=== PATIENT | male | born 1985 | race Caucasian/White ===

== ENCOUNTER 2018-06-02 08:50 | Outpatient (CLI) | payer MEDICARE, MEDICAID, SELFPAY ==
[2018-06-02 10:57] LABS: HCT 44.4 % (40.0-50.0); HGB 15.3 g/dL (13.5-17.5); Mean Corp. HGB Concentration 34.5 g/dL (32.0-36.0); Mean Corpuscular Hemoglobin 30.9 pg (27.0-33.0); Mean Corpuscular Volume 89.7 fL (80-95); Mean Platelet Volume 9.8 fL (8.0-11.0); Platelet Count 244 x1000/uL (130-400); RBC 4.95 m/cumm (4.50-6.00); RBC Distribution Width 12.1 % (11.8-14.1)
[2018-06-02 11:15] LABS: ALT 22 U/L (12-78); AST 14 U/L (15-37); Albumin 3.9 g/dL (3.4-5.0); Alkaline Phosphatase 54 U/L (46-116); Anion Gap 8.1 mmol/L (3-11); BUN 14 mg/dL (7-18); Bilirubin, Total 0.7 mg/dL (0.2-1.0); CO2 28.9 mmol/L (21.0-32.0); CREATININE 0.86 mg/dL (0.70-1.30); Calcium 8.8 mg/dL (8.5-10.1); Chloride 104 mmol/L (98-107); Cholesterol 166 mg/dL (50-200); Glucose 91 mg/dL (70-100); HDL Cholesterol 43 mg/dL (40-60); LDL CHOLESTEROL 106 mg/dL (<100); Magnesium 1.8 mg/dL (1.8-2.4); Sodium 141 mmol/L (136-145); TSH (W/Ref FT4) 2.04 uIU/mL (0.358-3.74); Total Protein 6.7 g/dL (6.4-8.2); Triglyceride 114 mg/dL (30-150)
== END 2018-06-02 09:10 ==
PROVIDERS: PCP Student in an Organized Health Care Education/Training Program; Visit Provider Student in an Organized Health Care Education/Training Program
DX: R53.83 Other fatigue (principal); F34.1 Dysthymic disorder; R51 Headache; K27.0 Acute peptic ulcer, site unspecified, with hemorrhage; N14.2 Nephropathy induced by unspecified drug, medicament or biological substance; Z13.6 Encounter for screening for cardiovascular disorders; M47.13 Other spondylosis with myelopathy, cervicothoracic region; F41.9 Anxiety disorder, unspecified
CPT/HCPCS: 36415; 80053; 80061; 83721; 85027; 83735; 84443

== ENCOUNTER 2019-04-15 12:29 | Outpatient (CLI) | payer MEDICARE, MEDICAID, SELFPAY ==
[2019-04-15 14:29] LABS: Anion Gap 10.3 mmol/L (3-11); BUN 13 mg/dL (7-18); CO2 28.7 mmol/L (21.0-32.0); CREATININE 0.78 mg/dL (0.70-1.30); Calcium 9.3 mg/dL (8.5-10.1); Calculated LDL 69 mg/dL; Chloride 103 mmol/L (98-107); Cholesterol 147 mg/dL (50-200); Glucose 84 mg/dL (70-100); HDL Cholesterol 45 mg/dL (40-60); Potassium 3.9 mmol/L (3.5-5.1); Sodium 142 mmol/L (136-145); Triglyceride 167 mg/dL (30-150)
[2019-04-18 07:16] LABS: Vitamin D 25 Total 40.5 ng/ml (30-100)
== END 2019-04-15 12:49 ==
PROVIDERS: PCP Student in an Organized Health Care Education/Training Program; Visit Provider Student in an Organized Health Care Education/Training Program
DX: E16.2 Hypoglycemia, unspecified (principal); R03.0 Elevated blood-pressure reading, without diagnosis of hypertension; E55.9 Vitamin D deficiency, unspecified; E78.5 Hyperlipidemia, unspecified
CPT/HCPCS: 36415; 80048; 80061; 82306

== ENCOUNTER → 2020-01-26 10:23 | Outpatient (BNVA) | payer MEDICARE, MEDICAID, SELFPAY | PROVIDERS: PCP Student in an Organized Health Care Education/Training Program; Referring Provider Student in an Organized Health Care Education/Training Program; Visit Provider Nurse Practitioner Adult Health | DX: G43.111 Migraine with aura, intractable, with status migrainosus (principal) | CPT/HCPCS: 99204 ==

== ENCOUNTER 2020-01-31 03:29 | Outpatient (CLI) | payer MEDICARE, MEDICAID, SELFPAY ==
[2020-01-31 13:06] LABS: ALT 26 U/L (16-63); AST 15 U/L (15-37); Albumin 4.1 g/dL (3.4-5.0); Alkaline Phosphatase 44 U/L (46-116); Anion Gap 4.7 mmol/L (3-11); BUN 10 mg/dL (7-18); Bilirubin, Total 0.9 mg/dL (0.2-1.0); CO2 29.3 mmol/L (21.0-32.0); CREATININE 0.75 mg/dL (0.70-1.30); Calcium 9.1 mg/dL (8.5-10.1); Chloride 108 mmol/L (98-107); Glucose 91 mg/dL (74-106); Lipase 144 U/L (73-393); Magnesium 2.1 mg/dL (1.8-2.4); Potassium 4.3 mmol/L (3.5-5.1); Sodium 142 mmol/L (136-145); Total Protein 6.8 g/dL (6.4-8.2)
[2020-01-31 19:31] LABS: Amylase 81 U/L (25-115)
== END 2020-01-31 03:49 ==
PROVIDERS: PCP Student in an Organized Health Care Education/Training Program; Visit Provider Student in an Organized Health Care Education/Training Program
DX: R10.9 Unspecified abdominal pain (principal); R11.2 Nausea with vomiting, unspecified; E86.0 Dehydration
CPT/HCPCS: 36415; 80053; 83690; 82150; 83735

== ENCOUNTER → 2020-05-29 08:22 | Outpatient (BNVA) | payer MEDICARE, MEDICAID, SELFPAY | PROVIDERS: PCP Student in an Organized Health Care Education/Training Program; Referring Provider Student in an Organized Health Care Education/Training Program; Visit Provider Nurse Practitioner Adult Health | DX: G43.111 Migraine with aura, intractable, with status migrainosus (principal); Q79.60 Ehlers-Danlos syndrome, unspecified | CPT/HCPCS: 99212; 99442 ==

== ENCOUNTER 2020-07-30 01:42 | Outpatient (CLI) | payer MEDICARE, MEDICAID, SELFPAY ==
--- NOTE | 2020-07-30 07:15 | DI.RAD_ITS ---
EXAM: XR LUMBAR SPINE COMPLETE CLINICAL HISTORY: lower back pain,M54.5,RA,SPONDYLOSIS, M47.818. TECHNIQUE: 2D digital imaging was performed. COMPARISON: No exams were available for comparison FINDINGS: There is no evidence of fracture or listhesis. There is sacralization of the L5 segment. This resul ts in a rudimentary L5-S1 disc space. Other disc spaces exhibit normal height. Sacroiliac joints ap pear unremarkable. No osseous lesions. Bone density is normal. Mild degenerative changes are noted in the facet joints at L4-5 level. No scoliosis. IMPRESSION: Sacralized L5 segment. This places additional stress upon L4-5 disc space. No other significant radiographic findings. DATA REPOSITORY: RADIATION DOSE DELIVERED:
== END 2020-07-30 01:43 ==
PROVIDERS: PCP Student in an Organized Health Care Education/Training Program; Visit Provider Student in an Organized Health Care Education/Training Program
DX: M54.5 Low back pain (principal); M47.818 Spondylosis without myelopathy or radiculopathy, sacral and sacrococcygeal region; M06.08 Rheumatoid arthritis without rheumatoid factor, vertebrae
CPT/HCPCS: 72110

== ENCOUNTER → 2020-08-28 07:29 | Outpatient (BNVA) | payer MEDICARE, MEDICAID, SELFPAY | PROVIDERS: PCP Student in an Organized Health Care Education/Training Program; Referring Provider Student in an Organized Health Care Education/Training Program; Visit Provider Nurse Practitioner Adult Health | DX: G43.111 Migraine with aura, intractable, with status migrainosus (principal); Q79.60 Ehlers-Danlos syndrome, unspecified; H53.2 Diplopia | CPT/HCPCS: 99212; 99213 ==

== ENCOUNTER 2021-01-08 09:14 | Outpatient (CLI) | payer MEDICARE, MEDICAID, SELFPAY ==
[2021-01-08 12:27] LABS: Anion Gap 10.1 mmol/L (3-11); BUN 12 mg/dL (7-18); CO2 26.9 mmol/L (21.0-32.0); CREATININE 0.8 mg/dL (0.70-1.30); Calcium 9.1 mg/dL (8.5-10.1); Calculated LDL 71 mg/dL (<100); Chloride 106 mmol/L (98-107); Cholesterol 139 mg/dL (<200); Glucose 96 mg/dL (74-106); HDL Cholesterol 43 mg/dL (40-60); Potassium 4.1 mmol/L (3.5-5.1); Sodium 143 mmol/L (136-145); Triglyceride 127 mg/dL (<150)
== END 2021-01-08 09:15 | disposition home or self-care (01) ==
LOC: LOS 09:20
PROVIDERS: PCP Student in an Organized Health Care Education/Training Program; Visit Provider Student in an Organized Health Care Education/Training Program
DX: E78.5 Hyperlipidemia, unspecified (principal); N28.9 Disorder of kidney and ureter, unspecified; K90.9 Intestinal malabsorption, unspecified
CPT/HCPCS: 36415; 80048; 80061

== ENCOUNTER 2021-05-06 01:21 | Outpatient (CLI) | payer MEDICARE, MEDICAID, SELFPAY ==
--- OUTSIDE RECORDS SUMMARY | 2021-05-06 01:24 | XMS_ITS ---
:1985 Author Care Team Providers Name Role Phone BRAYAN GARCIA DO Primary Care Provider [phone] Allergies Code Code System Name Reaction Severity Status Onset Tegaderm Rash ? Active ? Medications Name Status Start Date Stop Date ? ? amoxicillin 875 mg-potassium clavulanate 125 mg tablet Completed 12/17/2012 12/27/2012 1 (one) Tablet: two times daily azithromycin 500 mg tablet Completed ? 11/11 B-Stress 2,000 mcg capsule Completed 09/08/201210/27 1 Capsule: daily Celebrex 100 mg capsule Active ? Not avai lable Take 1 capsule twice a day by oral route as needed. citalopram 10 mg tablet Active ? Not avai lable diclofenac sodium 75 mg Completed ? 11/12/19 18 tablet,delayed release doxycycline hyclate 100 mg Completed ? 11/11 tablet duloxetine 20 mg capsule,delayed release Completed 016 06/12/2016 1 (one) Capsule Capsule: daily escitalopram 10 mg tablet Active ? Not av ailable Flexeril 5 mg tablet Completed ? 12/31/2017 Take 1 tablet every day by oral route at bedtime. ibuprofen 200 mg tablet Completed ? 01/01/20 18 Take 1 tablet every 6 hours by oral route as needed. lorazepam 0.5 mg tablet Active ? Not avai lable Take 1 tablet every day by oral route as needed. magnesium glycinate Active ? Not availabl e take two 400mg tablets daily methocarbamol 500 mg tablet Completed 04/07/2016 09/0 12/2016 1 (one) Tablet: as needed nabumetone 500 mg tablet Completed ? 018 naproxen 500 mg tablet,delayed release Completed ? 12/31/2017 Take 1 tablet twice a day by oral route as needed. Damián's wort 300 mg capsule Completed 04/19/2012 0 09/08/2012 1 Capsule: daily sumatriptan 50 mg tablet Active ? Not kenn ilable Take 1 tablet every day by oral route as needed. Vitamin C 100 mg tablet Completed 12/17/2011 12/17/19 12 1 (one) Tablet: as needed Vitamin D3 25 mcg (1,000 unit) capsule Active ? Not available Take 5 capsules 3 times a week by oral route. Wellbutrin XL 150 mg 24 hr tablet, extended release Completed 07/15/2011 07/15/2011 1 Tablet ER 24HR: daily Problems Name Status Onset Date Source ? Vitamin D Deficiency Unknown ? History Hyperlipidemia Active ? History Obsessive-compulsive Disorder Active ? Hi story Nicotine Dependence Active ? History Depressive Disorder Active ? History Organic Sleep Disorder Active ? History Restless Legs Unknown ? History Migraine Active ? History Diplopia Unknown ? History Accommodative Esotropia Active ? History Bilateral Tinnitus Unknown ? History Pharyngitis Unknown ? History Allergic Rhinitis Active ? History Joint Pain Unknown ? History Spondylosis Active ? History Backache Active ? History Sleep Disorder Unknown ? History Lack of Energy Unknown ? History Eruption Unknown ? History Headache Unknown ? History Apnea Active ? History Snoring Unknown ? History Increased Frequency of Urination Unknown ? History Antidepressant Drug Adverse Reaction Unknown ? History Disorder of Skin And/or Subcutaneous Tissue Unknown ? History Adult Health Examination Active ? History Procedure by Method Unknown ? History SNOMED CT Concept Unknown ? History Procedures Date Name Performed by ? 01/02/2010 Eye Surgery Information not avai lable Notes: 10/10/2007 Results Lab Results Date Name Specimen Result Interpretation Description Value Range Status Address ? 11/13/2017 Enteric [facility] - Salmonella PCR see comments ? Final [facility] Bacteria, [facility] Lab Specific (Interna l): Culture, [address] ? ? ST[facility] - Shigella PCR see comments ? Diane cruzito [facility] L ab (Internal) : [address] ? ? STL - Campylobacter see comments ? Fin crispin [facility] L ab (Internal) : [address] ? ? STL - Shiga Toxin see comments ? Final [facility] L ab (Internal) : [address] 11/11/2017 Urinalysis, UR - UA-color yellow pale Final [facility] Dipsticklashaun [facility] Reflex Micro w Hosp ital Lab (Internal) : [address] ? ? UR - UA-appear clear clear Final [facility] L ab (Internal) : [address] ? ? UR - UA-spec Grav 1.010 1.003 Final [facility] -1.03 Country 5 Hospital L ab (Internal) : [address] ? ? UR - UA-pH 7.0 [pH] 4.6-[address] [pH] Hospital L ab (Internal) : [address] ? ? UR - UA-leuk Est negative negat Final No rth [facility] Hospital L ab (Internal) : [address] ? ? UR - UA-nitrite negative negat Final [facility] Hospital L ab (Internal) : [address] ? ? UR - UA-prot negative negat Final [facility] Hospital L ab (Internal) : [address] ? ? UR - UA-gluc negative negat Final [facility] L ab (Internal) : [address] ? ? UR - UA-ketone negative negat Final [facility] Hospital L ab (Internal) : [address] ? ? UR - UA-urobil normal gurvinder Final [facility] Hospital L ab (Internal) : [address] ? ? UR - UA-bili negative negat Final [facility] L ab (Internal) : [address] ? ? UR - UA-blood negative negat Final [facility] L ab (Internal) : [address] 11/11/2017 CBC W/ Auto BLD - Wbc 7.7 10*3/uL 5.0-1 Fin al [facility] Diff 0.0 Country 10*3/ Hospital L ab uL (Internal) : [address] ? ? BLD - Rbc 5.25 10*6/uL 4.60- Final [facility] h 6.00 Country 10*6/ Hospital L ab uL (Internal) : [address] ? ? BLD - Hgb 16.0 g/dL 14.0- [facility] 18.0 Country g/dL Hospital L ab (Internal) : [address] ? ? BLD - Hct 49.0 % 41.0- Final [place] 51.0 Country % Hospital L ab (Internal) : [address] ? ? BLD - Mcv 93.3 fL 80.0- Final [facility] 96.0 Country fL Hospital L ab (Internal) : [address] ? ? BLD - Mch 30.5 pg 26.0- Final [facility] 32.0 Country pg Hospital L ab (Internal) : [address] ? ? BLD - Mchc 32.7 g/dL 31.0- Final [facility] 35.0 Country g/dL Hospital L ab (Internal) : [address] ? ? BLD Low Rdw 11.3 % 11.5- Final [facility] 14.5 Country % Hospital L ab (Internal) : [address] ? ? BLD - Plt 258 10*3/uL 130-4 Final [facility] 50 Country 10*3/ Hospital L ab uL (Internal) : [address] ? ? BLD - Anc 4.81 10*3/uL ? Final Nort h [facility] Hospital L ab (Internal) : [address] ? ? BLD - Neutro 62.4 % 40.0- Final [facility] 75.0 Country % Hospital L ab (Internal) : [address] ? ? BLD - Lymph 26.6 % 20.0- Final [facility] 50.0 Country % Hospital L ab (Internal) : [address] ? ? BLD - [place] 7.9 % 2.0-1 Final [facility] 0.0 % Country Hospital L ab (Internal) : [address] ? ? BLD - Eos 1.6 % 1.0-6 Final [facility] .0 % [facility] Hospital L ab (Internal) : [address] ? ? BLD - Baso 1.0 % 0.0-1 Final [facility] .0 % Country Hospital L ab (Internal) : [address] [place] [address] ? ? BLD - Ig 0.5 % 0.0-0 Final [facility] .9 % Country Hospital L ab (Internal) : [address] 11/11/2017 CMP, Serum or S - g/r 103 mg/dL 74-10 Fin al [facility] Plasma 6 Country mg/dL Hospital L ab (Internal) : [address] ? ? S - Bun 11 mg/dL 9-20 Final [facility] mg/dL [facility] Hospital L ab (Internal) : [address] ? ? S - Crea 0.70 mg/dL 0.66- Final [facility] 1.25 Country mg/dL Hospital L ab (Internal) : [address] ? ? S - Ca 9.5 mg/dL 8.4-1 Final [facility] 0.2 Country mg/dL Hospital L ab (Internal) : [address] ? ? S - Na 142 mmol/L 137-1 Final [facility] 45 Country mmol/ Hospital L ab L (Internal) : [address] ? ? S - K 4.1 mmol/L 3.5-5 Final [facility] .1 Country mmol/ Hospital L ab L (Internal) : [address] ? ? S - Cl 101 mmol/L 98-10 Final [facility] 7 Country mmol/ Hospital L ab L (Internal) : [address] ? ? S - Tco2 30.0 mmol/L 22.0- Final [facility] 30.0 Country mmol/ Hospital L ab L (Internal) : [address] ? ? S - Tp 7.5 g/dL 6.3-8 Final [facility] .2 Country g/dL Hospital L ab (Internal) : [address] ? ? S - Alb 4.7 g/dL 3.5-5 Final [facility] .0 Country g/dL Hospital L ab (Internal) : [address] ? ? S - Tbil 0.6 mg/dL 0.2-1 Final [facility] .3 Country mg/dL Hospital L ab (Internal) : [address] ? ? S - Alp 51 U/L 50-13 Final [facility] 6 U/L Country Hospital L ab (Internal) : [address] ? ? S - Alt (Sgpt) 22 U/L 21-72 Final [facility] U/L [facility] Hospital L ab (Internal) : [address] ? ? S - Ast (Sgot) 33 U/L 17-59 Final [facility] U/L [facility] Hospital L ab (Internal) : [address] t 11/11/2017 Amylase, S - Cristy 92 U/L 30-11 Final Nort h Serum or 0 U/L [facility] Plasma Hospital L ab (Internal) : [address] t 11/11/2017 Lipase, Serum S - Lip 90 U/L 23-30 Final [facility] or Plasma 0 U/L [facility] Hospital L ab (Internal) : [address] 11/11/2017 Fecal Occult ? Occult Blood negative ? ? P_nc Primary Blood, Stool [facility] [place]: 1 86 [facility] 08/12/2017 Culture, THRT ? Final microbiology ? Final [facility] Aerobic, results [facility] Throat Hospital L ab (Internal) : [address] 06/22/2017 Venipuncture BLD ? Venpn* ? ? Final [facility] L [facility] (Internal) : [address] 06/22/2017 WILL S ? WILL negative negat Final Nort h (Antinuclear Interpretation Country Antibodies) Hospi doris Lab Screen, (Internal ): Serum [address] t 10/28/2016 Venipuncture BLD ? Venpn* ? ? Final [facility] L ab (Internal) : [address] t 10/28/2016 [facility] ? [id number] see below ? Final No rth Refrigerate 10/31/2016 C ountry 05:27 AM Hospital Lab (Internal) : [address] 10/28/2016 Send Out, [facility] ? S/O vit B6 (suarez ? Diane cruzito [facility]. b6pro) [facility] Hospital L ab (Internal) : [address] t ? ? MIS ? Status sent to ? Final [facility] lab Hospital L ab (Internal) : [address] 10/28/2016 Ferritin, S ? Ferr 42 NG/mL 18-46 Final N orth Serum or 4 Country Plasma NG/mL Hospital L ab (Internal) : [address] t 10/28/2016 Thyroid S ? Tsh 1.84 0.47- Final [facility] [place], u[IU]/mL 4.68 Countr y Serum u[IU] Hospital L ab /mL (Internal) : [address] 10/28/2016 Vitamin D, S ? 25-Hydroxy D2 <4.0 NG/mL ? Final [facility] 25-Hydroxy, Count ry Total, Serum Hosp ital Lab (Internal) : [address] ? ? S ? 25-Hydroxy D3 41 NG/mL ? Final [facility] L ab (Internal) : [address] ? ? S ? 25-Hydroxy D 41 NG/mL ? Final N orth Total [facility] Hospital L ab (Internal) : [address] 10/28/2016 Homocysteine, ? Homocysteine, 5 mcmol/L <= 13 Final [facility] Moles/volume, Total, P (fast C ountry Serum ing) Hospital L ab mcmol (Internal) : /L [address] 10/28/2016 WILL S ? WILL negative negat Final Nort h (Antinuclear Interpretation Country Antibodies) Hospi doris Lab Screen, (Internal ): Serum [address] 10/28/2016 Lipid Panel, S ? Chol 186 mg/dL 50-20 Diane l [facility] Serum 0 Country mg/dL Hospital L ab (Internal) : [address] ? ? S High Trig 151 mg/dL 10-15 Final [facility] 0 Country mg/dL Hospital L ab (Internal) : [address] ? ? S Low Hdl 38 mg/dL 40-60 Final North mg/dL [facility] Hospital L ab (Internal) : [address] ? ? S ? Ldl 118 mg/dL 0-130 Final [facility] mg/dL [facility] Hospital L ab (Internal) : [address] 10/28/2016 Vitamin B12, S ? Vit B12 421.0 pg/mL 239.0 Final [facility] Serum -931. Country 0 Hospital L ab pg/mL (Internal) : [address] Past Encounters None recorded. Social History Tobacco Smoking Status Former Smoker Notes: recentl y quit Vaccine List Vaccine Type COVID-19, mRNA, LNP-S, PF, 100 mcg/0.5 m L dose (Moderna) 08/27/2020?100 mcg 09/24/2020?100 mcg Tdap 11/17/2008 Plan of Care Reminders Provider Appointments None ? ? recorded. Lab None ? ? recorded. Referral None ? ? recorded. Procedures None ? ? recorded. Surgeries None ? ? recorded. Imaging None ? ? recorded. Vitals 12/31/2017 04:40PM Follow Up 20 Height Blood Pressure 167.64 cm 120/80 mm[Hg] 11/11/2017 11:00AM Acute 40 Height Weight BMI Blood Pressure 167.64 cm 66.18 kg 23.5 kg/m2 128/72 mm[Hg] 08/12/2017 Height Weight Blood Pressure 167.64 cm 65.59 kg 116/78 mm[Hg] 02/12/2017 Weight Blood Pressure 69.9 kg 129/68 mm[Hg] 10/27/2016 Height Weight Blood Pressure 167.64 cm 70.72 kg 128/84 mm[Hg] 10/01/2016 Height Weight Blood Pressure 167.01 cm 70.45 kg 121/74 mm[Hg] 06/12/2016 Weight Blood Pressure 71.3 kg 132/64 mm[Hg] 05/14/2016 Height Weight Blood Pressure 167.01 cm 71.24 kg 132/71 mm[Hg] 04/25/2016 Weight Blood Pressure 71.21 kg 110/70 mm[Hg] 04/24/2016 Height Weight Blood Pressure 167.01 cm 71.35 kg 132/65 mm[Hg] 04/07/2016 Weight Blood Pressure 70.99 kg 122/78 mm[Hg] 12/17/2012 Weight Blood Pressure 61.69 kg 110/84 mm[Hg] 10/18/2012 Weight Blood Pressure 64.41 kg 122/70 mm[Hg] 09/08/2012 Weight Blood Pressure 67.13 kg 120/64 mm[Hg] 04/19/2012 Height Weight Blood Pressure 167.64 cm 67.13 kg 122/72 mm[Hg] 12/17/2011 Weight Blood Pressure 72.12 kg 112/52 mm[Hg] 09/16/2011 Height Weight Blood Pressure 166.37 cm 73.8 kg 130/82 mm[Hg] 07/15/2011 Height Weight Blood Pressure 166.37 cm 73.03 kg 130/64 mm[Hg] 05/03/2010 Height Weight Blood Pressure 166.37 cm 67.86 kg (1) 124/72 mm[Hg] (2) 120/78 mm[Hg]
--- NOTE | 2021-05-06 06:15 | DI.US_ITS ---
Exam(s) US ABDOMEN EXAM: US ABDOMEN CLINICAL HISTORY: Evaluate for mass, abn anatomy, abd path,abd pain, r10.9 TECHNIQUE: Ultrasound of complete upper abdomen performed using standard protocol. COMPARISON: No exams were available for comparison FINDINGS: There is no ascites evident. LIVER: There are no hepatic lesions evident nor obvious dilatation of intrahepatic ducts. GALLBLADDER/BILIARY: There are no gallstones. No gallbladder wall edema nor pericholecystic fluid. The common hepatic duct isnot dilated, measuring 2mm at the level of dale hepatis. PANCREAS: There is no evidence of pancreatic mass nor dilatation of the pancreatic duct. SPLEEN: The spleen is not enlarged and there are no intrasplenic lesions evident. KIDNEYS:Kidneys exhibit normal size with no evidence of solid mass, calculus, nor hydronephrosis. No cortical cysts evident. ABDOMINAL AORTA: There is no evidence of abdominal aortic aneurysm. IVC: Normal diameter where visualized. OTHER: Scanning of left lower quadrant was also performed and did not reveal evidence of obvious mass or hernia. IMPRESSION: 1. No evidence of cholelithiasis nor dilatation of the biliary tree. 2. No other significant ultrasound findings in the upper abdomen. 3. There is no ascites. Left lower quadrant scanning did not reveal evidence of an obvious mass nor hernia. If clinically in dicated follow-up CT scan can be performed. DATA REPOSITORY:
== END 2021-05-06 01:41 ==
PROVIDERS: PCP Student in an Organized Health Care Education/Training Program; Visit Provider Student in an Organized Health Care Education/Training Program
DX: R10.9 Unspecified abdominal pain (principal)
CPT/HCPCS: 76700

== ENCOUNTER → 2021-05-14 13:31 | Outpatient (BNVA) | payer MEDICARE, MEDICAID, SELFPAY | PROVIDERS: PCP Student in an Organized Health Care Education/Training Program; Referring Provider Student in an Organized Health Care Education/Training Program; Visit Provider Surgery | DX: R10.12 Left upper quadrant pain (principal) | CPT/HCPCS: 99203; 99214 ==

== ENCOUNTER 2021-06-03 15:23 | Outpatient (REF) | payer MEDICARE, MEDICAID, SELFPAY | END 2021-06-03 15:24 | disposition home or self-care (01) | LOC: LBN 15:23 | PROVIDERS: PCP Student in an Organized Health Care Education/Training Program; Visit Provider Family Medicine | DX: R06.02 Shortness of breath (principal); Z20.822 Contact with and (suspected) exposure to COVID-19 | CPT/HCPCS: U0003 ==

== ENCOUNTER 2021-06-13 02:07 | Outpatient (CLI) | payer MEDICARE, MEDICAID, SELFPAY ==
[2021-06-05 15:29] LABS: COVID-19 RT-PCR UVMMC Result Negative (Negative)
--- NOTE | 2021-06-13 06:45 | DI.MRI_ITS ---
Exam(s) MR PELVIS WO EXAM: MR PELVIS WO CLINICAL HISTORY: evaluate hip stability, sacroiliitis, ankyloses,hip pain,m46.1,m25.50,ehler TECHNIQUE: Multiplanar multisequence MRI of Pelvis was performed COMPARISON: CR XR LUMBAR SPINE COMPLETE from 07/30/2020 FINDINGS: Bones: There is no fracture or contusion pattern. No significant joint effusion or labral injury is present. No bone marrow edema is seen. The SI joints and symphysis pubis are well maintained. Musculotendinous structures: Musculotendinous structures demonstrate no abnormality. Intrapelvic str uctures demonstrate no significant abnormality. Soft tissues: Unremarkable. IMPRESSION: Normal MRI examination the pelvis. DATA REPOSITORY:
--- NOTE | 2021-06-13 09:50 | DI.MRI_ITS ---
Exam(s) MR LUMBAR SPINE WO EXAM: MR LUMBAR SPINE WO CLINICAL HISTORY: evaluate spondylitis, subluxation risk, sacralization,sacroilitis,pain,m45.. TECHNIQUE: Multiplanar multisequence MRI of the Lumbar spine was performed. COMPARISON: CR XR LUMBAR SPINE COMPLETE from 07/30/2020 FINDINGS: Bones: The last intervertebral disc space is designated the L5/S1 level for the numbering purpose of this examination. The vertebral body heights are well maintained. Alignment is satisfactory. The si gnal characteristics are unremarkable. Cord: The conus tip ends at the L1 level. It is of normal size and signal intensity. T12-L1: No disc herniations or bulges are present. No central spinal canal or neural foraminal stenos is. L1-2: No disc herniations or bulges are present. No central spinal canal or neural foraminal stenosis . L2-3: No disc herniations or bulges are present. No central spinal canal or neural foraminal stenosis . L3-4: No disc herniations or bulges are present. No central spinal canal or neural foraminal stenosis . L4-5: No disc herniations or bulges are present. No central spinal canal or neural foraminal stenosis . L5-S1: No disc herniations or bulges are present. No central spinal canal or neural foraminal stenosi s. Soft tissues: The visualized SI joints and sacrum are well maintained. The paraspinal soft tissues ar e unremarkable. IMPRESSION: No evidence of significant spinal stenosis or neuroforaminal narrowing. DATA REPOSITORY:
--- NOTE | 2021-06-13 11:02 | DI.RAD_ITS ---
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 COMPARISON: No exams were available for comparison FINDINGS: MEDIASTINUM: Normal. HEART: Normal. PULMONARY VASCULATURE: Normal. LUNGS: Clear. PLEURAL SPACE: No pleural effusion or pneumothorax. BONE:Normal. BILATERAL RIBS: Normal. OTHER FINDINGS:Normal. IMPRESSION: 1. No acute pulmonary findings. 2. Unremarkable ribs. DATA REPOSITORY: RADIATION DOSE DELIVERED:
== END 2021-06-13 02:27 ==
PROVIDERS: Family Medicine; PCP Student in an Organized Health Care Education/Training Program; Visit Provider Student in an Organized Health Care Education/Training Program
DX: R06.02 Shortness of breath (principal); M46.1 Sacroiliitis, not elsewhere classified; Q79.60 Ehlers-Danlos syndrome, unspecified; Z87.39 Personal history of other diseases of the musculoskeletal system and connective tissue; Z87.81 Personal history of (healed) traumatic fracture; M06.08 Rheumatoid arthritis without rheumatoid factor, vertebrae; M45.6 Ankylosing spondylitis lumbar region; Q76.49 Other congenital malformations of spine, not associated with scoliosis; T14.8XXA Other injury of unspecified body region, initial encounter; M25.59 Pain in other specified joint; X58.XXXA Exposure to other specified factors, initial encounter
CPT/HCPCS: 71046; 71110; 72148; 72195

== ENCOUNTER 2021-07-09 14:43 | Outpatient (CLI) | payer MEDICARE, MEDICAID, SELFPAY ==
--- NOTE | 2021-07-09 14:30 | RT.EKG_ITS ---
APPROVED REPORT Exam: Resting ECG Reason for Exam: Medication monitoring Patient Location: O HR:83 bpm ECG Measurements Heart Rate 83 AXIS MA 135 P 67 QRSd 90 QRS 97 QT 344 T 62 QTc 405 Conclusion Sinus rhythm...normal P axis, V-rate 60- 99 Normal Electrocardiogram
== END 2021-07-09 14:44 | disposition home or self-care (01) ==
LOC: DI.KIM 14:44
PROVIDERS: PCP Student in an Organized Health Care Education/Training Program; Visit Provider Student in an Organized Health Care Education/Training Program
DX: Z51.81 Encounter for therapeutic drug level monitoring (principal); Z79.899 Other long term (current) drug therapy
CPT/HCPCS: 93010

== ENCOUNTER 2022-08-15 10:48 | Outpatient (REF) | payer MEDICARE, MEDICAID, SELFPAY ==
[2022-08-15 15:25] LABS: Epithelial Cells Negative HPF (Negative); RBC Negative HPF (0-2); WBC Negative HPF (0-5)
[2022-08-15 15:26] LABS: Bacteria Rare HPF (Negative)
[2022-08-15 15:27] LABS: C & S Indicated? No; Casts Negative LPF (Negative); Crystals Many Amorphous HPF (Negative); Mucus Moderate (Negative)
== END 2022-08-15 10:49 | disposition home or self-care (01) ==
LOC: LBN 10:48
PROVIDERS: PCP Student in an Organized Health Care Education/Training Program; Visit Provider Student in an Organized Health Care Education/Training Program
DX: R10.9 Unspecified abdominal pain (principal)
CPT/HCPCS: 81015

== ENCOUNTER 2022-12-25 02:37 | Outpatient (CLI) | payer MEDICARE, MEDICAID, SELFPAY ==
[2022-12-25 16:20] LABS: Bilirubin Negative (Negative); Blood Negative (Negative); Clarity Clear (Clear); Glucose Negative (Negative); Ketones Negative (Negative); Leukocyte Esterase Negative (Negative); Nitrite Negative (Negative); Specific Gravity >= 1.030 (1.005-1.025)
[2022-12-25 16:59] LABS: Anion Gap 6.8 mmol/L (3-11); BUN 19 mg/dL (7-18); CO2 29.2 mmol/L (21.0-32.0); Calcium 8.7 mg/dL (8.5-10.1); Chloride 108 mmol/L (98-107); Estimated GFR 100.66 (mL/min/1.73m2); Glucose 128 mg/dL (74-106); Potassium 3.7 mmol/L (3.5-5.1); Sodium 144 mmol/L (136-145)
[2022-12-27 12:50] LABS: Chlamydia Result Negative (Negative); GC Result Negative (Negative)
[2022-12-27 14:16] LABS: Specimen Description URINE
[2022-12-29 09:18] LABS: HSV Type 1 Ab, IgG Negative (Negative); HSV Type 2 Ab, IgG Negative (Negative)
[2022-12-29 09:20] LABS: Hepatitis B Surface Ag Negative (Negative)
[2022-12-29 09:53] LABS: Hepatitis C Ab w Rflx HCV PCR Negative (Negative)
[2022-12-29 10:01] LABS: HIV-1/2 Ag & Ab Screen Negative (Negative)
[2022-12-29 10:18] LABS: Syphilis Serology (RPR) Negative (Negative)
[2022-12-29 10:37] LABS: Hep A Total Ab w Rflx IgM Negative (Negative)
[2022-12-30 19:59] LABS: HSV 1 PCR, B Negative (Negative); HSV 2 PCR, B Negative (Negative)
== END 2022-12-25 02:38 | disposition home or self-care (01) ==
LOC: LBO 02:37
PROVIDERS: PCP Student in an Organized Health Care Education/Training Program; Referring Provider Student in an Organized Health Care Education/Training Program; Visit Provider Student in an Organized Health Care Education/Training Program
DX: E86.0 Dehydration (principal); R39.89 Other symptoms and signs involving the genitourinary system; Z11.3 Encounter for screening for infections with a predominantly sexual mode of transmission; Z11.59 Encounter for screening for other viral diseases; Z11.4 Encounter for screening for human immunodeficiency virus [HIV]; Z91.89 Other specified personal risk factors, not elsewhere classified; Z20.2 Contact with and (suspected) exposure to infections with a predominantly sexual mode of transmission; R79.89 Other specified abnormal findings of blood chemistry; F41.8 Other specified anxiety disorders; R82.998 Other abnormal findings in urine
CPT/HCPCS: 36415; 80048; 86709; 86803; 87340; 87389; 87491; 87529; 87591; 81003; 86592; 86695; 86696

== ENCOUNTER → 2023-01-29 12:31 | Outpatient (CLI) | payer MEDICARE, MEDICAID, SELFPAY ==
--- NOTE | 2023-01-29 08:45 | DI.RAD_ITS ---
Exam(s) XR HIP LT COMPLETE AP PELVIS EXAM: XR HIP LT COMPLETE AP PELVIS CLINICAL HISTORY: eval for labral tearM25.552 PAIN LT HIP S73.192A SPRAIN. TECHNIQUE: 2D digital imaging was performed. COMPARISON: No exams were available for comparison FINDINGS: Views No evidence of pelvic nor hip fracture. No hip joint space narrowing. Additional lateral view of th e left hip appears unremarkable. Sacroiliac joints appear unremarkable. Bone density normal. No os seous lesions IMPRESSION: No significant radiograph findings in pelvis-hips. DATA REPOSITORY: RADIATION DOSE DELIVERED:
--- NOTE | 2023-01-29 08:45 | DI.MRI_ITS ---
Exam(s) MR LOWER JOINT LT WO EXAM: MR LOWER JOINT LT WO CLINICAL HISTORY: evaluate for labral tear M25.552 PAIN LT HIP S73.192A SPRAIN TECHNIQUE: Multiplanar multisequence MRI of the hip was performed. COMPARISON: CR XR HIP LT COMPLETE AP PELVIS from 01/29/2023 FINDINGS: MARROW:There is no evidence of fracture, bone contusion, nor avascular necrosis. There are no signif icant osseous lesions.There is no significant osseous excrescence at the femoral head-neck junction t o suggest the presence of cam-type JONI. EFFUSION: No prominent hip joint effusion. There is some mild fluid in both hip joints, approximatel y equal. No loose intra-articular bodies evident. BURSAE: There is no evidence of trochanteric bursitis. There is no evidence of iliopsoas bursitis. HIP JOINT SPACE: No obvious chondral defects. There are no degenerative subarticular cysts on either side of the hip joint.There is no hypertrophy of the ligamentum teres nor signal abnormality at the fovea centralis. LABRUM: Small focus of signal abnormality noted in the anterior superior labrum consistent with small labral tear at this level. There is no evidence of paralabral cyst. No overlying bone edema in the anterior acetabulum. TENDONS: No evidence of tendinitis nor tendon tears. ISCHIAL TUBEROSITY/HAMSTRING: There is no abnormal intraosseous signal in the ipsilateral ischial tub erosity nor tear of the common hamstrings tendon attachment site at this level. OTHER: There is no prominent abnormal intramuscular signal within the quadratus femoris to suggest th e presence of impingement syndrome at this level. IMPRESSION: There a small focus of signal abnormality in the anterior superior labrum of the left hip. Consisten t with small labral tear at this level. No evidence of paralabral cyst. No evidence of degenerative subarticular cyst in the acetabulum at this level nor other obvious degenerative changes in the hip joint. DATA REPOSITORY:
== END ==
PROVIDERS: PCP Student in an Organized Health Care Education/Training Program; Visit Provider Student in an Organized Health Care Education/Training Program
DX: M25.552 Pain in left hip (principal); S73.192A Other sprain of left hip, initial encounter; X58.XXXA Exposure to other specified factors, initial encounter
CPT/HCPCS: 73721; 73502

== ENCOUNTER → 2023-02-26 08:58 | Outpatient (BNVA) | payer MEDICARE, MEDICAID, SELFPAY | PROVIDERS: PCP Student in an Organized Health Care Education/Training Program; Referring Provider Student in an Organized Health Care Education/Training Program; Visit Provider Nurse Practitioner Gerontology | DX: R10.2 Pelvic and perineal pain (principal); F41.9 Anxiety disorder, unspecified; F32.A Depression, unspecified | CPT/HCPCS: 99214 ==

== ENCOUNTER 2023-04-14 19:01 | Outpatient (CLI) | payer MEDICARE, MEDICAID, SELFPAY ==
[2023-04-14 14:32] LABS: ALT 19 U/L (16-63); AST 16 U/L (15-37); Albumin 4.4 g/dL (3.4-5.0); Alkaline Phosphatase 51 U/L (46-116); BUN 15 mg/dL (7-18); Bilirubin, Total 0.5 mg/dL (0.2-1.0); CREATININE 0.9 mg/dL (0.70-1.30); Calcium 9.2 mg/dL (8.5-10.1); Chloride 102 mmol/L (98-107); Estimated GFR 114.22 (mL/min/1.73m2); Glucose 86 mg/dL (74-106); Potassium 3.7 mmol/L (3.5-5.1); Sodium 139 mmol/L (136-145); Total Protein 7.5 g/dL (6.4-8.2)
[2023-04-15 09:32] LABS: HSV Type 1 Ab, IgG Negative (Negative); HSV Type 2 Ab, IgG Negative (Negative)
[2023-04-15 09:39] LABS: Syphilis Serology (RPR) Negative (Negative)
[2023-04-15 09:54] LABS: Hepatitis B Surface Ag Negative (Negative)
[2023-04-15 10:28] LABS: Hepatitis C Ab w Rflx HCV PCR Negative (Negative)
[2023-04-15 11:23] LABS: HIV-1/2 Ag & Ab Screen Negative (Negative)
[2023-04-15 11:43] LABS: Hep A Total Ab w Rflx IgM Negative (Negative)
[2023-04-15 15:00] LABS: Chlamydia Result Negative (Negative); GC Result Negative (Negative)
== END 2023-04-14 19:02 | disposition home or self-care (01) ==
LOC: LBO 19:02
PROVIDERS: PCP Student in an Organized Health Care Education/Training Program; Visit Provider Student in an Organized Health Care Education/Training Program
DX: Z20.2 Contact with and (suspected) exposure to infections with a predominantly sexual mode of transmission (principal); K76.9 Liver disease, unspecified; Z79.1 Long term (current) use of non-steroidal anti-inflammatories (NSAID)
CPT/HCPCS: 36415; 80048; 80053; 86709; 86803; 87340; 87389; 87491; 87529; 87591; 86592; 86695; 86696

== ENCOUNTER → 2023-06-16 09:05 | Outpatient (BNVA) | payer MEDICARE, MEDICAID, SELFPAY | PROVIDERS: PCP Student in an Organized Health Care Education/Training Program; Referring Provider Student in an Organized Health Care Education/Training Program; Visit Provider Surgery | DX: L98.9 Disorder of the skin and subcutaneous tissue, unspecified (principal) | CPT/HCPCS: 99214 ==

== ENCOUNTER → 2023-07-02 10:15 | Outpatient (BNVA) | payer MEDICARE, MEDICAID, SELFPAY | PROVIDERS: PCP Student in an Organized Health Care Education/Training Program; Referring Provider Student in an Organized Health Care Education/Training Program; Visit Provider Nurse Practitioner Gerontology | DX: R10.2 Pelvic and perineal pain (principal) | CPT/HCPCS: 99213 ==

== ENCOUNTER 2024-08-17 03:25 | Outpatient (CLI) | payer MEDICARE, MEDICAID, SELFPAY ==
--- NOTE | 2024-08-17 06:30 | DI.CT_ITS ---
Exam(s) CT ABDOMEN PELVIS W EXAM: CT ABDOMEN PELVIS W CLINICAL HISTORY: ? hernia or mass,ABD PAIN, R10.9 TECHNIQUE: Imaging Protocol: Axial computed tomography images with coronal and sagittal reformatted images were created and reviewed. CONTRAST MATERIAL: Intravenous: Omnipaque 350 Contrast volume:75 mL Oral: Yes COMPARISON: MR MR PELVIS WO from 06/13/2021 FINDINGS: ABDOMEN: Lung Bases: No acute abnormality. Liver: Normal density. There are 2 tiny hypodensities in the right lobe of the liver most likely refl ecting cysts. No suspicious hepatic masses are seen. Portal, Superior Mesenteric, and Splenic Veins: Unremarkable. Gallbladder and Biliary Tract: No radiodense calculus or dilation. Pancreas: Normal density, no abnormal calcifications or inflammatory process. Spleen: Normal. Adrenals: No masses seen. Kidneys: Normal size, contour and axis. No radiodense stones or obstructive uropathy. No masses seen. Abdominal Aorta: Abdominal portion non-dilated. Bowel: No obstruction or bowel wall thickening. Appendix is unremarkable. Peritoneal Cavity: No ascites, collection or mesenteric inflammatory response. No free air. Lymph Nodes: Within normal limits. Bones: Within normal limits for the patient's age. Soft Tissues: There is a small fat containing umbilical hernia. No evidence of an inguinal hernia. PELVIS: Bladder: Symmetric distention, no gross wall thickening. Reproductive Organs: Unremarkable as visualized. Lymph Nodes: Within normal limits. Bones: Within normal limits for the patient's age. IMPRESSION: 1. No acute abdominal or pelvic process. 2. Small fat containing umbilical hernia. RADIATION DOSE DELIVERED: 380.88mGy.cm Total DLP DATA REPOSITORY: All CT scans at this facility are submitted to the National Radiology Data Registry (NRDR) Dose Index Registry (DIR) with the [employer] ([employer]). RADIATION OPTIMIZATION: All CT scans at this facility use at least one of these dose optimization te chniques: automated exposure control; mA and/or kV adjustment per patient size (includes targeted exa ms where dose is matched to clinical indication); or iterative reconstruction.
[2024-08-17] MEDS: Barium Sulfate 2% W/V-Berry Smoothie 450 ML BTL PO (08:06)
[2024-08-17] MEDS: Barium Sulfate 2% W/V-Creamy Vanilla Smoothie 450 ML BTL PO (08:07)
[2024-08-17] MEDS: Omnipaque 350 MG/ML 100 ML BTL 75 ML IJ (10:50)
[2024-08-17] MEDS: Normal Saline - Diluent 50 ML VIAL IJ (11:00)
== END 2024-08-17 03:45 ==
LOC: DI 03:25
PROVIDERS: PCP Nurse Practitioner Family; Visit Provider Nurse Practitioner Family
DX: R10.9 Unspecified abdominal pain (principal)
CPT/HCPCS: 74177; J3490

== ENCOUNTER → 2024-09-12 09:50 | Outpatient (BNVA) | payer MEDICARE, MEDICAID, SELFPAY | PROVIDERS: PCP Nurse Practitioner Family; Referring Provider Nurse Practitioner Family; Visit Provider Student in an Organized Health Care Education/Training Program | DX: K42.9 Umbilical hernia without obstruction or gangrene (principal) | CPT/HCPCS: 99213 ==

== ENCOUNTER 2024-10-12 15:03 | Outpatient (CLI) | payer MEDICARE, MEDICAID, SELFPAY ==
--- NOTE | 2024-10-12 15:00 | DI.RAD_ITS ---
Exam(s) XR HIP LT COMPLETE AP PELVIS EXAM: XR HIP LT COMPLETE AP PELVIS CLINICAL HISTORY: LEFT HIP PAIN. TECHNIQUE: 2D digital imaging was performed. COMPARISON: CR XR HIP LT COMPLETE AP PELVIS from 01/29/2023 FINDINGS: Two views No evidence of pelvic nor hip fracture. No degenerative changes in the hips. Additional lateral vie w of the left hip reveals no significant findings. Bone density normal. No osseous lesions. No ost eophytes. IMPRESSION: There is significant osseous findings in the pelvis-hips. DATA REPOSITORY: RADIATION DOSE DELIVERED:
== END 2024-10-12 15:04 | disposition home or self-care (01) ==
LOC: DIORS 15:03
PROVIDERS: PCP Nurse Practitioner Family; Referring Provider Nurse Practitioner Family; Visit Provider Student in an Organized Health Care Education/Training Program
DX: M25.552 Pain in left hip (principal); M62.89 Other specified disorders of muscle; M53.3 Sacrococcygeal disorders, not elsewhere classified; G89.29 Other chronic pain
CPT/HCPCS: 99214; 73502

== ENCOUNTER 2024-11-18 12:40 | Outpatient (CLI) | payer MEDICARE, MEDICAID, SELFPAY ==
[2024-11-18 12:46] LABS: Abs Immature Grans 0.05 10^3/uL (0.0-0.06); Absolute Basophil Count 0.09 10^3/uL (0.0-0.2); Absolute Eosinophil Count 0.14 10^3/uL (0.0-0.7); Absolute Lymphocyte Count 1.86 10^3/uL (1.2-3.4); Absolute Monocyte Count 0.57 10^3/uL (0.1-0.8); Basophils % 1.3 %; HGB 15.1 g/dL (13.5-17.5); Immature Grans % 0.7 %; Lymphocytes % 26.2 %; MCH 30.6 pg (27.0-33.0); MCHC 33.6 % (32.0-36.0); MCV 91 fL (80-95); MPV 9.3 fL (8.0-11.0); Neutrophils % 61.8 %; Platelet Count 279 10^3/uL (130-400); RBC 4.93 10^6/uL (4.36-5.78); RDW 11.4 % (11.8-14.1); RDW-SD 38.5 fL; WBC 7.11 10^3/uL (4.4-10.8)
== END 2024-11-18 12:41 | disposition home or self-care (01) ==
LOC: LBO 12:40
PROVIDERS: PCP Nurse Practitioner Family; Visit Provider Student in an Organized Health Care Education/Training Program
DX: Z91.89 Other specified personal risk factors, not elsewhere classified (principal); K58.9 Irritable bowel syndrome, unspecified; R53.83 Other fatigue; E46 Unspecified protein-calorie malnutrition
CPT/HCPCS: 36415; 83735; 85025

== ENCOUNTER 2025-01-31 09:00 | Emergency (ER) | payer MEDICARE, MEDICAID, SELFPAY ==
[2025-01-31 09:00] VITALS: PULSE 76; RESP 20; TEMP 36.2; O2SAT 98
[2025-01-31 09:04] VITALS: PULSE 76; RESP 20; TEMP 36.2; O2SAT 98
[2025-01-31] MEDS: Normal Saline 1,000 ML 1000 ML IV (09:20)
[2025-01-31] MEDS: Droperidol 5 MG/2 ML VIAL IVP (09:20)
[2025-01-31 09:22] LABS: Abs Immature Grans 0.10 10^3/uL (0.0-0.06); HCT 46.2 % (40.0-50.0); HGB 15.5 g/dL (13.5-17.5); Immature Grans % 0.8 %; MCH 30.6 pg (27.0-33.0); MCHC 33.5 % (32.0-36.0); MCV 91 fL (80-95); MPV 9.4 fL (8.0-11.0); Platelet Count 305 10^3/uL (130-400); RBC 5.07 10^6/uL (4.36-5.78); RDW 11.7 % (11.8-14.1); RDW-SD 39.1 fL; WBC 12.55 10^3/uL (4.4-10.8)
[2025-01-31] MEDS: diphenhydrAMINE 50 MG/ML VIAL 25 MG IVP (09:36)
[2025-01-31 09:54] LABS: ALT 32 U/L (16-63); AST 23 U/L (15-37); Albumin 4.6 g/dL (3.4-5.0); Alkaline Phosphatase 57 U/L (46-116); Anion Gap 15.2 mmol/L (3-11); BUN 15 mg/dL (7-18); Bilirubin, Total 1.0 mg/dL (0.2-1.0); CO2 22.8 mmol/L (21.0-32.0); Calcium 9.6 mg/dL (8.5-10.1); Chloride 105 mmol/L (98-107); Estimated GFR 99.41 (mL/min/1.73m2); Glucose 132 mg/dL (74-106); Magnesium 2.1 mg/dL (1.8-2.4); Potassium 4.3 mmol/L (3.5-5.1); Sodium 143 mmol/L (136-145); Total Protein 7.7 g/dL (6.4-8.2)
--- NOTE | 2025-01-31 10:33 | W.ED.GENAD ---
Discharge Plan Disposition Patient Disposition: Home Discharge Details Clinical Impression: Abdominal pain Primary Care Provider: Carissa Morley ED Provider: Israel Hung Home Meds and New Rx's Prescriptions: Continued psyllium husk [Daily Fiber] 0.4 gram capsule 0.4 g PO DAILY duloxetine 60 mg capsule,delayed release(DR/EC) 60 mg PO QDAY Qty: 90 1RF medical marijuana PO Patient Comments: Pt makes a tincture with CBD oil and THC. orphenadrine citrate 100 mg tablet extended release 100 mg PO ONCE Qty: 7 0RF Rx Instructions: Trial, do not take with flexeril naproxen sodium [Aleve] 220 mg capsule 220 mg PO BID PRN gabapentin 300 mg capsule 300 mg PO QHS Qty: 90 3RF Rx Instructions: cont higher dose for neuropathic pain tizanidine 2 mg tablet 2 mg PO Q8H PRN (Reason: muscle spasticity, pain) Qty: 20 1RF Rx Instructions: Continue TRIAL for skeletal mm spasm pain cholecalciferol (vitamin D3) 1,000 unit capsule 2,000 unit PO DAILY PRN Patient Comments: 04/15/19 takes 2000 uinits a day magnesium oxide 400 mg magnesium capsule 400 mg PO QHS Qty: 90 3RF (DME) orthotics See Rx Instructions .Route .MEDSUPPLY Qty: 1 0RF Rx Instructions: As directed dextroamphetamine-amphetamine [Adderall XR] 15 mg capsule,extended release 24hr 15 mg PO QAM MDD 15 mg Qty: 28 0RF celecoxib 100 mg capsule 100 mg PO QHS Discharge Instructions Instructions: Abdominal Pain, Adult ED HPI General Date/Time Provider Initiated Documentation: 01/31/25 09:31. HPI Narrative: MDM/Narrative: Initial Assessment: 39-year-old male with nausea, vomiting, diarrhea, and lower left abdominal pain. Differential Diagnosis: - Gastroenteritis: Monitor symptoms. - Medication side effects: Droperidol causing tardive dyskinesia. Administer Benadryl. - Connective tissue disorder: Consider impact on symptoms. - Doubt acute intra-abdominal infection given reassuring abdominal examination, normal vital signs, lack of fever. If significant lab abnormalities will consider imaging ED Course: - Droperidol administered for nausea and vomiting. - Developed tardive dyskinesia from droperidol. - Stat dose of 25 mg Benadryl administered for tardive dyskinesia. 12:33PM Results were reviewed, chest x-ray and x-ray of the abdomen showed no acute findings. Lab work shows no significant acute findings other than an elevated leukocytosis. On reassessment, patient notes complete resolution of his tardive dyskinesia symptoms, notes significantly improved abdominal pain and denies any nausea. Results reviewed with the patient. We discussed the nonspecific result of an elevated white blood cell count, and a CAT scan was offered to the patient as it is now again available at our facility. However patient states he is feeling much better and has a follow-up appointment with his provider at the end of the week and is agreeable with the plan for discharge or follow-up with his PCP. I instructed him to return should he develop persistent pain, nausea or vomiting or develops fever, he is agreeable with the plan. This document was created with assistance from [employer] The patient consented to its use. Disposition: Discharge HPI: The patient is a 39-year-old male with a known connective tissue disorder, presenting with nausea, vomiting, and diarrhea. He reports experiencing left lower quadrant abdominal pain, described as similar to extreme hunger, which commenced after consuming a honeybun this morning. This pain was followed by a normal bowel movement. He describes painful abdominal spasms in the left lower quadrant, radiating to the diaphragm and stomach, causing discomfort during stretching. The patient has been experiencing significant pain and diaphoresis, impacting his daily functioning since 0630 hours. He reports vomiting without hematemesis or the presence of coffee ground-like material. The patient has no history of major abdominal or thoracic surgeries. He is currently undergoing physical therapy for a core injury, though he is uncertain if this is related to his current symptoms. He has not found any effective pain management treatment and notes changes in his appetite. PAST SURGICAL HISTORY: Tympanoplasty. ROS: Negative besides as mentioned above Exam: Vital signs: Reviewed. General Appearance: Alert and oriented. No acute distress. HEENT: Oropharynx clear. No dyskinesia. Neck: Supple, full range of motion, no observable masses, No meningeal sign. Respiratory: No Respiratory distress. No tachypnea. Cardiovascular: RRR, no edema. Gastrointestinal: Tenderness in left lower quadrant. No tenderness in right side. Back: No midline tenderness to palpation or palpable step-offs of the C/T/L spine. Skin: Warm and dry, no rash. Neurological: Normal Gait, Grossly intact. Psychiatric: Appropriate for situation. Labs: Laboratory Tests Range/Units 01/31/25 09:08 WBC (4.4-10.8) 10^3/uL 12.55 H RBC (4.36-5.78) 10^6/uL 5.07 Hgb (13.5-17.5) g/dL 15.5 Hct (40.0-50.0) % 46.2 MCV (80-95) fL 91 MCH (27.0-33.0) pg 30.6 MCHC (32.0-36.0) % 33.5 RDW (11.8-14.1) % 11.7 L Plt Count (130-400) 10^3/uL 305 MPV (8.0-11.0) fL 9.4 Immature Gran % % 0.8 Neutrophils % % 78.9 Lymphocytes % % 13.5 Monocytes % % 5.3 Eosinophils % % 0.6 Basophils % % 0.9 Nucleated RBC % (0.0-0.3) % 0.0 Absolute Neutrophils (1.2-6.7) 10^3/uL 9.90 H Absolute Lymphocytes (1.2-3.4) 10^3/uL 1.69 Absolute Monocytes (0.1-0.8) 10^3/uL 0.67 Absolute Eosinophils (0.0-0.7) 10^3/uL 0.08 Absolute Basophils (0.0-0.2) 10^3/uL 0.11 Sodium (136-145) mmol/L 143 Potassium (3.5-5.1) mmol/L 4.3 Chloride (98-107) mmol/L 105 Carbon Dioxide (21.0-32.0) mmol/L 22.8 Anion Gap (3-11) mmol/L 15.2 H BUN (7-18) mg/dL 15 Creatinine (0.70-1.30) mg/dL 1.0 Est GFR (CKD-EPI 2020) (mL/min/1.73m2) 99.41 Glucose (74-106) mg/dL 132 H Calcium (8.5-10.1) mg/dL 9.6 Magnesium (1.8-2.4) mg/dL 2.1 Total Bilirubin (0.2-1.0) mg/dL 1.0 AST (15-37) U/L 23 ALT (16-63) U/L 32 Alkaline Phosphatase (46-116) U/L 57 Total Protein (6.4-8.2) g/dL 7.7 Albumin (3.4-5.0) g/dL 4.6 Radiology: Chest x-ray: No acute disease, as read by me. X-ray abdomen 2 view: Nonobstructive bowel gas pattern, as read by me. Related Data Home Medications ?Medication ?Instructions ?Recorded ?Confirmed medical marijuana PO 04/01/18 12/22/24 cholecalciferol (vitamin D3) 25 2,000 unit PO DAILY PRN 04/15/19 01/31/25 mcg (1,000 unit) capsule psyllium husk 0.4 gram capsule 0.4 g PO DAILY 01/17/21 01/31/25 (Daily Fiber) magnesium oxide 400 mg PO QHS hypokalemia, 02/22/21 01/31/25 myalgias, headaches #90 tab-caps orthotics #1 ea 10/19/21 01/31/25 orphenadrine citrate 100 mg 100 mg PO ONCE #7 tabs 12/31/21 01/31/25 tablet,extended release naproxen sodium 220 mg capsule 220 mg PO BID PRN 10/21/23 01/31/25 (Aleve) gabapentin 300 mg capsule 300 mg PO QHS PLS FILL EARLY FOR 08/19/24 01/31/25 CAMP TRIP #90 caps duloxetine 60 mg capsule,delayed 60 mg PO QDAY depression #90 caps 09/16/24 01/31/25 release tizanidine 2 mg tablet 2 mg PO Q8H PRN muscle spasticity, 11/18/24 01/31/25 pain #20 tabs Adderall XR 15 mg capsule,extended 15 mg PO QAM #28 caps 01/20/25 01/31/25 release (dextroamphetamine-amphetamine) celecoxib 100 mg capsule 100 mg PO QHS 01/31/25 01/31/25 Previous Rx's ?Medication ?Instructions ?Recorded magnesium oxide 400 mg PO QHS hypokalemia, 02/22/21 myalgias, headaches #90 tab-caps orthotics #1 ea 10/19/21 orphenadrine citrate 100 mg 100 mg PO ONCE #7 tabs 12/31/21 tablet,extended release gabapentin 300 mg capsule 300 mg PO QHS PLS FILL EARLY FOR 08/19/24 CAMP TRIP #90 caps duloxetine 60 mg capsule,delayed 60 mg PO QDAY depression #90 caps 09/16/24 release tizanidine 2 mg tablet 2 mg PO Q8H PRN muscle spasticity, 11/18/24 pain #20 tabs Adderall XR 15 mg capsule,extended 15 mg PO QAM #28 caps 01/20/25 release (dextroamphetamine-amphetamine) Allergies Allergy/AdvReac Type Severity Reaction Status Date / Time silver (From [employer] Allergy Unknown Rash Verified 01/31/25 09:06 Mesh) adhesive AdvReac rash Verified 01/31/25 09:06 General Stated Complaint: Abd Prob CHELSEA: 3 Course Vital Signs Vital signs: Vital Signs Temperature 36.2 C L 01/31/25 09:00 Pulse 76 01/31/25 09:00 Respiratory Rate 20 01/31/25 09:00 Pulse Oximetry 98 01/31/25 09:00 Temperature 36.2 C L 01/31/25 09:04 Temperature Source Tympanic 01/31/25 09:04 Pulse 76 01/31/25 09:04 Respiratory Rate 20 01/31/25 09:04 Blood Pressure Position Sitting 01/31/25 09:04 Pulse Oximetry 98 01/31/25 09:04 Oxygen Delivery Method Room Air 01/31/25 09:04 Oxygen Flow Rate 0 01/31/25 09:04 Pain Level 9 01/31/25 09:04 Lab/Test Results Lab/Test Results: Laboratory Tests Range/Units 01/31/25 09:08 WBC (4.4-10.8) 10^3/uL 12.55 H RBC (4.36-5.78) 10^6/uL 5.07 Hgb (13.5-17.5) g/dL 15.5 Hct (40.0-50.0) % 46.2 MCV (80-95) fL 91 MCH (27.0-33.0) pg 30.6 MCHC (32.0-36.0) % 33.5 RDW (11.8-14.1) % 11.7 L Plt Count (130-400) 10^3/uL 305 MPV (8.0-11.0) fL 9.4 Immature Gran % % 0.8 Neutrophils % % 78.9 Lymphocytes % % 13.5 Monocytes % % 5.3 Eosinophils % % 0.6 Basophils % % 0.9 Nucleated RBC % (0.0-0.3) % 0.0 Absolute Neutrophils (1.2-6.7) 10^3/uL 9.90 H Absolute Lymphocytes (1.2-3.4) 10^3/uL 1.69 Absolute Monocytes (0.1-0.8) 10^3/uL 0.67 Absolute Eosinophils (0.0-0.7) 10^3/uL 0.08 Absolute Basophils (0.0-0.2) 10^3/uL 0.11 Sodium (136-145) mmol/L 143 Potassium (3.5-5.1) mmol/L 4.3 Chloride (98-107) mmol/L 105 Carbon Dioxide (21.0-32.0) mmol/L 22.8 Anion Gap (3-11) mmol/L 15.2 H BUN (7-18) mg/dL 15 Creatinine (0.70-1.30) mg/dL 1.0 Est GFR (CKD-EPI 2020) (mL/min/1.73m2) 99.41 Glucose (74-106) mg/dL 132 H Calcium (8.5-10.1) mg/dL 9.6 Magnesium (1.8-2.4) mg/dL 2.1 Total Bilirubin (0.2-1.0) mg/dL 1.0 AST (15-37) U/L 23 ALT (16-63) U/L 32 Alkaline Phosphatase (46-116) U/L 57 Total Protein (6.4-8.2) g/dL 7.7 Albumin (3.4-5.0) g/dL 4.6 PFSH All Active Problems (Updated 01/31/25 @ 13:17 by Israel Hung MD) Dizziness (Acute) Nausea (Acute) Low back pain (Acute) Chronic left SI joint pain (Acute) TMJ (dislocation of temporomandibular joint) (Acute) Umbilical hernia (Acute) Encounter for medication review and counseling (Acute) Psoas syndrome (Acute) Electrolyte imbalance risk (Acute) Papule of skin (Acute) inner rt eye, disappeared when on doxy (milia? acne?) .. too close to eye for me to recommend topical gel at this time Skin lesion of face (Acute) rt outer cheek, soft, long Hx, no bleeding, but Hx swelling .. Bx recommended, Fam Hx skin cancers Toenail deformity (Acute) Sleep difficulties (Acute) interested in finding out about sleep dental consult Ear congestion (Acute) Connective tissue disease (Acute) Fibular abnormality (Acute) Cuboid syndrome (Acute) Ankle pain, right (Acute) Hip pain, left (Acute) Labral tear of left hip joint (Acute) Possible Dx per Pt and PT .. MR Arthrography IBS (irritable bowel syndrome) (Chronic) Acute back pain with radiculopathy (Acute) Unable to sit, side child-pose helping .. Depression (Chronic) Psychological and behavioral factors associated with disorders or diseases classified elsewhere (Acute) Chronic pain (Chronic) Eyes sensitive to light (Acute) Living accommodation issues (Acute) Myalgia, multiple sites (Acute) Myalgia, pelvic region and thigh (Acute) Pelvic pain in male (Acute) SI/Pelvis Arthralgia Flank pain, acute (Acute) Foot pain, bilateral (Acute) Coordination of complex care (Acute) Shared care needs.. planning to outline care plan and review. 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 Hypermobility arthralgia (Acute) Anxiety (Acute) ADHD (attention deficit hyperactivity disorder) (Acute) Adderall trial, Abdominal pain (Acute) Medical History COVID-19 Jan 26 (s/p 14 day isolation) Exposure to sexually transmitted disease (STD) both screens NEG Change of job Fired, but expected/OK, 12/23/22 .. 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 can this be confirmed by derm? Stress due to illness of family member Fa was in ICU (sepsis+) .. Food insecurity SNAP? Comm Conn? Hx of dislocation of shoulder rt History of fractured rib lft Sacralization of lumbar vertebra L5, per 07/2020 XR. Ankylosing spondylitis lumbar region Bilateral sacroiliitis Hx clinical Dx .. requesting MRI for evaluation due to pain, EDS, joint issues Subluxation Cont w/ PT, but noting subluxation of joints - causing muscle spasms. Flexeril helps mm spasms. PT helping in general, with good ongoing communication. Orthostatic intolerance POTS Arthropathy of left sacroiliac joint Acute on chronic pain. [employer] helping somewhat. Anxiety about health Right shoulder injury Hx dislocation .. new discovery of shoulder brace [postural brace] helping (01/2020) .. neck ache relieved, shoulder crunching sound relieved.. Hx separation 8 yrs ago .. EDS showing Rib pain on left side on discussion, seems out of place ... Numerous skin moles Flesh-colored and dark, but benign in appearance. Monitor and refer to Derm PRN. Lesions may be Bx @ surgery, locally, if need be. Fundic gland polyps of stomach, benign per EGD, 11/13/14 @ [facility] (2' nausea and melena). Brooks recomm if symptoms persisted ... Acute torticollis Hx stiff, painful neck. Hx chiro adjustments. Current pain and stiffness is acute, aggravated by being immobile, in bed 2' knee, back pain. Strabismus (05/23/13) Postnasal drip (05/23/13) Chronic sinusitis (05/23/13) Arthritis (05/23/13) Allergic rhinitis (05/23/13) Vertigo Spondylosis Accommodative esotropia Tobacco abuse disorder Quit .. 600 days w/o smoking, excellent! Headaches have decreased immensely, which is great to see. 01/2019 Migraine Organic sleep disorder Hyperlipidemia Surgical History H/O eye surgery 10/10/07 & 01/02/10 Family History Maternal Grandmother Diabetes Colon cancer Maternal Grandfather Pancreatic cancer Mother Hypertension Father Peripheral artery disease Skin cancer Brother Skin cancer Social History (Updated 05/28/23 @ 10:10 by Cammie Rey NP) Smoking/Tobacco Use Status: Former Tobacco Use Quit Date: 06/08/17 Pack-years: 8 Tobacco: How many years used: 15 Smoking risk assessment performed?: Yes Alcohol Intake: current Alcohol Intake frequency: a few times a month Alcohol type: beer Substance use type: marijuana Housing: apartment Pets and animals: Yes What is your relationship status?: never Panel score (0-1 are the most socially isolated patients): 0 What type of physical activity do you participate in: walking Seatbelt use: always Drive intox 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 Firearms in home: Yes Firearms unloaded and locked: No PAWSS Have you Been Recently Intoxicated or Drunk Within the Last 30 days?: No Have you Ever Experienced Previous Episodes of Alcohol Withdrawal?: No Have you ever Experienced Withdrawal Seizures?: No Have you ever Experienced Delirium Tremens(DT)s?: No Have you ever undergone Alcohol Rehabilitation Treatment (i.e, inpt ot outpatient treatment programs)?: No Have you ever Experienced Blackouts?: No Have you ever Combined Alcohol with other Downers within the last 90 days?: No Have you ever Combined Alcohol with any other Substance of Abuse during the last 90 days?: No Result: 0
--- NOTE | 2025-01-31 10:45 | DI.RAD_ITS ---
Exam(s) XR CHEST 2V PA LATERAL EXAM: XR CHEST 2V PA LATERAL CLINICAL HISTORY: vomiting TECHNIQUE: 2D digital imaging was performed of the chest. Two images were obtained. PA and lateral views were obtained. COMPARISON: CR XR RIBS BI INCLUDE CHEST from 06/13/2021 FINDINGS: MEDIASTINUM: Normal. HEART: Normal. PULMONARY VASCULATURE: Normal. LUNGS: Clear. PLEURAL SPACE: No pleural effusion or pneumothorax. BONE:Within normal limits for the patient's age. OTHER FINDINGS:Normal. IMPRESSION: No acute pulmonary findings. DATA REPOSITORY: RADIATION DOSE DELIVERED:
--- NOTE | 2025-01-31 10:45 | DI.RAD_ITS ---
Exam(s) XR ABDOMEN FLAT UPRIGHT EXAM: 2D digital imaging was performed. CLINICAL HISTORY: Assess for obstruction. COMPARISON: CR XR LUMBAR SPINE COMPLETE from 07/30/[address] ABDOMEN PELVIS W from 08/17/2024 CR XR CHEST 2V PA LATERAL from 01/31/2025 TECHNIQUE: Supine and upright views of the abdomen was performed. Four images were obtained. FINDINGS: LUNG BASES: Clear. BOWEL GAS PATTERN: Nondistended. No findings to suggest obstruction. FREE AIR: None. CALCIFICATIONS: No radiopaque calcifications. OSSEOUS STRUCTURES: Normal for age. OTHER FINDINGS: None. IMPRESSION: No evidence of an acute abdomen. DATA REPOSITORY: RADIATION DOSE DELIVERED:
[2025-01-31 12:25] VITALS: BP 100/61
[2025-01-31 13:29] VITALS: BP 111/79; PULSE 69; O2SAT 100
== END 2025-01-31 13:34 | disposition home or self-care (01) ==
PROVIDERS: Emergency Provider General Practice; PCP Nurse Practitioner Family
DX: R10.32 Left lower quadrant pain (principal); R11.2 Nausea with vomiting, unspecified; R19.7 Diarrhea, unspecified
CPT/HCPCS: 36415; 80053; 96361; 96374; 96375; 99284; 71046; 74019; 83735; 85025; J1200; J1790

== ENCOUNTER 2025-02-21 01:32 | Outpatient (CLI) | payer MEDICARE, MEDICAID, SELFPAY ==
[2025-02-21 15:23] LABS: Abs Immature Grans 0.06 10^3/uL (0.0-0.06); HCT 43.8 % (40.0-50.0); HGB 14.7 g/dL (13.5-17.5); Immature Grans % 0.8 %; MCH 30.8 pg (27.0-33.0); MCHC 33.6 % (32.0-36.0); MCV 92 fL (80-95); MPV 9.6 fL (8.0-11.0); Platelet Count 304 10^3/uL (130-400); RBC 4.77 10^6/uL (4.36-5.78); RDW 11.7 % (11.8-14.1); RDW-SD 39.7 fL; WBC 7.26 10^3/uL (4.4-10.8)
[2025-02-21 16:09] LABS: ALT 23 U/L (16-63); AST 14 U/L (15-37); Albumin 4.0 g/dL (3.4-5.0); Alkaline Phosphatase 60 U/L (46-116); Anion Gap 10.8 mmol/L (3-11); BUN 11 mg/dL (7-18); Bilirubin, Total 0.7 mg/dL (0.2-1.0); CO2 26.2 mmol/L (21.0-32.0); Calcium 9.0 mg/dL (8.5-10.1); Chloride 103 mmol/L (98-107); Estimated GFR 116.90 (mL/min/1.73m2); Glucose 104 mg/dL (74-106); Potassium 3.9 mmol/L (3.5-5.1); Sodium 140 mmol/L (136-145); Total Protein 7.3 g/dL (6.4-8.2)
[2025-02-21 18:18] LABS: C-Reactive Protein < 0.50 mg/dL (<or=0.5)
== END 2025-02-21 01:33 ==
LOC: LBO 02-22 01:32
PROVIDERS: PCP Nurse Practitioner Family; Visit Provider Nurse Practitioner Family
DX: R10.84 Generalized abdominal pain (principal)
CPT/HCPCS: 36415; 80053; 82784; 85025; 86140

== ENCOUNTER 2025-02-22 02:14 | Outpatient (CLI) | payer MEDICARE, MEDICAID, SELFPAY ==
--- NOTE | 2025-02-22 | DI.US_ITS ---
Exam(s) US ABDOMEN LIMITED EXAM: US ABDOMEN LIMITED CLINICAL HISTORY: GENERALIZED ABD PAIN R10.84 2 HYPODENSITIES RT LOWER LOBE LIVER SEEN ON CT TECHNIQUE: Ultrasound abdomen performed using standard protocol. COMPARISON: US US ABDOMEN from 05/06/[address] ABDOMEN PELVIS W from 08/17/2024 FINDINGS: There is no ascites evident. LIVER: There is a small 1.8 x 0.9 cm cyst in the subcapsular region right hepatic lobe. No other focal findings in the liver. GALLBLADDER/BILIARY: There are no gallstones. No gallbladder wall edema nor pericholecystic fluid. The common hepatic duct isupper normal, measuring 6-7mm at the level of dale hepatis. PANCREAS: There is no evidence of pancreatic mass nor dilatation of the pancreatic duct. RIGHT KIDNEY:No evidence of solid mass, calculus, nor hydronephrosis. No cortical cysts evident. IMPRESSION: 1. No evidence of cholelithiasis nor dilatation of the biliary tree. 2. Tiny cyst in the liver which probably corresponds to that seen in the liver on prior CT scan. 3. There is no ascites. DATA REPOSITORY:
== END 2025-02-22 02:34 ==
LOC: DI 02:14
PROVIDERS: PCP Nurse Practitioner Family; Visit Provider Nurse Practitioner Family
DX: R10.84 Generalized abdominal pain (principal)
CPT/HCPCS: 76705

== ENCOUNTER 2025-02-22 19:30 | Outpatient (REF) | payer MEDICARE, MEDICAID, SELFPAY ==
[2025-02-24 14:05] LABS: Helicobacter pylori Ag, Feces Negative (Negative)
== END 2025-02-22 19:31 | disposition home or self-care (01) ==
LOC: LBN 19:30
PROVIDERS: PCP Nurse Practitioner Family; Visit Provider Nurse Practitioner Family
DX: R10.84 Generalized abdominal pain (principal); Z79.1 Long term (current) use of non-steroidal anti-inflammatories (NSAID); K62.5 Hemorrhage of anus and rectum; K21.9 Gastro-esophageal reflux disease without esophagitis
CPT/HCPCS: 87338; 83993